=== PATIENT | male | born 1960 | race Caucasian/White ===

== ENCOUNTER → 2017-06-24 | Day surgery (SDC) | payer OTHER ==
[2017-06-24 09:49] VITALS: BMI 31.9
[2017-06-24 11:31] VITALS: TEMP 98.2
[2017-06-24 12:19] VITALS: BP 116/77; PULSE 57
--- NOTE | 2017-06-27 11:52 | PATH ---
Surgical Pathology Report Patient Name: JANET MERCADO [facility]. Rec. #: [id number] /Age/Gender: 1960 (Age: 57) / M Account: [id number] Location: [facility]-ENDOSCOPY Taken: 06/24/2017 Received: 06/24/2017 Reported: 06/27/2017 Physicians: Andres Foy M.D. Specimen(s) Received A: BX SECOND PORTION DUODENUM & DUODENAL BULB B: BX ANTRUM C: BX GE JUNCTION & MID ESOPHAGUS D: BX ILEUM E: BX ANASTOMOTIC ULCERATION F: BX ANAL POUCH Clinical History Abdominal pain Postoperative diagnosis: Hiatal hernia, GERD, ulcerative colitis status post colectomy with ileorectal pouch anastomosis Final Diagnosis A. DUODENUM, SECOND PORTION AND BULB, BIOPSY: DUODENAL MUCOSA WITH NO PATHOLOGIC CHANGES. NO HISTOLOGIC EVIDENCE OF GLUTEN SENSITIVE ENTEROPATHY (CELIAC SPRUE) IDENTIFIED. B. STOMACH, ANTRUM, BIOPSY: GASTRIC MUCOSA WITH NO SIGNIFICANT PATHOLOGIC CHANGES IMMUNOSTAIN FOR H. PYLORI IS NEGATIVE. C. GE JUNCTION AND MID ESOPHAGUS, BIOPSY: SQUAMOUS EPITHELIUM AND MUCOSA WITH PAPILLOMATOSIS SUGGESTIVE OF REFLUX ESOPHAGITIS. NO INTESTINAL METAPLASIA IDENTIFIED (NO RODRIGUEZ'S IDENTIFIED). NO EOSINOPHILIC ESOPHAGITIS IDENTIFIED D. ILEUM, BIOPSY: SMALL INTESTINE MUCOSA WITH SMALL LYMPHOID AGGREGATE WITHIN LAMINA PROPRIA NO ACTIVE INFLAMMATION, ARCHITECTURAL DISTORTION, GRANULOMA, MUCOSA DYSPLASIA IDENTIFIED E. 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 NO DYSPLASIA IDENTIFIED. F. COLON, ANAL POUCH, BIOPSY: COLONIC MUCOSA WITH ACTIVE INFLAMMATION, ALONG WITH PANETH CELL METAPLASIA, AND FOCAL ARCHITECTURAL DISTORTION CONSISTENT WITH ACTIVE IDIOPATHIC INFLAMMATORY BOWEL DISEASE NO DYSPLASIA IDENTIFIED Electronically Signed Jose Castillo M.D. Gross Description A. Received in formalin, labeled "biopsy second portion of duodenum and duodenal bulb" are 3 broussard, irregular portions of soft tissue averaging 0.4 cm. in greatest dimension. The specimens are submitted in toto in one cassette. B. Received in formalin, labeled "biopsy antrum" are 4 broussard, irregular portions of soft tissue ranging from 0.2-0.5 cm. in greatest dimension. The specimens are submitted in toto in one cassette. C. Received in formalin, labeled "biopsy GE junction and midesophagus" are 3 broussard, irregular portions of soft tissue ranging from 0.1-0.4 cm. in greatest dimension. The specimens are submitted in toto in one cassette. D. Received in formalin, labeled "biopsy ileum" are 2 broussard, irregular portions of soft tissue measuring 0.4 and 0.5 cm. in greatest dimension. The specimens are submitted in toto in one cassette. E. Received in formalin, labeled "biopsy anastomotic ulceration" are 2 broussard, irregular portions of soft tissue measuring 0.4 and 0.5 cm. in greatest dimension. The specimens are submitted in toto in one cassette. F. Received in formalin, labeled "biopsy anal pouch" are 4 broussard, irregular portions of soft tissue ranging from 0.2-0.4 cm. in greatest dimension. The specimens are submitted in toto in one cassette. 06/24/2017 [facility]06/24/2017
== END | disposition home or self-care (01) ==
LOC: JASU-ENDO 09:05
PROVIDERS: ATTEND Internal Medicine Gastroenterology
PROC: 0DBP8ZX Excision of Rectum, Via Natural or Artificial Opening Endoscopic, Diagnostic (ICD-10-PCS; 2017-06-24)
PROC: 0DB98ZX Excision of Duodenum, Via Natural or Artificial Opening Endoscopic, Diagnostic (ICD-10-PCS; 2017-06-24)
PROC: 0DB68ZX Excision of Stomach, Via Natural or Artificial Opening Endoscopic, Diagnostic (ICD-10-PCS; 2017-06-24)
PROC: 0DB38ZX Excision of Lower Esophagus, Via Natural or Artificial Opening Endoscopic, Diagnostic (ICD-10-PCS; 2017-06-24)
PROC: 0DBB8ZX Excision of Ileum, Via Natural or Artificial Opening Endoscopic, Diagnostic (ICD-10-PCS; principal; 2017-06-24 10:00)
DX: Z12.11 Encounter for screening for malignant neoplasm of colon (principal); K63.3 Ulcer of intestine; K52.3 Indeterminate colitis; K21.9 Gastro-esophageal reflux disease without esophagitis; K44.9 Diaphragmatic hernia without obstruction or gangrene; D50.9 Iron deficiency anemia, unspecified; Z98.0 Intestinal bypass and anastomosis status
CPT/HCPCS: 88305-TC; 88342-TC